=== PATIENT | female | born 1960 | race Caucasian/White ===

== ENCOUNTER 2020-02-09 20:56 | Emergency (ER) | payer OTHER ==
[~2020-02-09] VITALS: Ht 177.8 cm; Wt 83.9 kg
[2020-02-09] MEDS ORDERED: IPRATROPIUM BROM 0.5 MG/2.5ML INH SOL NEB ONE (21:45)
[2020-02-09] MEDS ORDERED: ALBUTEROL SULF HFA 90MCG INH 200DOSE IN SCH (22:00)
[2020-02-09] MEDS ORDERED: IOHEXOL 350 MG/ML 100ML IJ ONE (22:14)
[2020-02-09] MEDS ORDERED: AZITHROMYCIN 500MG/ 250ML 250 ML IV ONE (22:15)
[2020-02-09 23:08] LABS: Basophils # (auto) 0 10 ^3/uL (0-0.2); Basophils % (auto) 0.4 % (0.0-2.0); Eosinophils # (auto) 0 10 ^3/uL (0-0.8); Hematocrit 32.7 % (36.0-46.0); Hemoglobin 11.1 g/dL (12.2-16.2); Lymphocytes # (auto) 0.4 10 ^3/uL (0.4-5.4); Lymphocytes % (auto) 20.3 % (10.0-50.0); Mean Corpuscular Hemoglobin 31.8 pg (28.0-32.0); Mean Corpuscular Hgb Conc. 33.9 g/dL (32.0-36.0); Mean Corpuscular Volume 93.9 fL (80.0-100.0); Monocytes # (auto) 0.1 10 ^3/uL (0-1.3); Neutrophils # (auto) 1.4 10 ^3/uL (1.6-8.6); Neutrophils % (auto) 72.3 % (37.0-80.0); Nucleated Red Blood Cells % 0.3 %; Platelet Count (auto) 282 10^3/uL (140-450); Red Blood Cells 3.48 10^6/uL (4.0-5.20)
[2020-02-09 23:26] LABS: INR 1.09 (0.9-1.15); Partial Thromboplastin Time 41.5 sec (23.0-31.2)
[2020-02-09 23:31] LABS: Alanine Aminotransferase 17 U/L (13-56); Albumin 2.7 g/dL (3.4-5.0); Anion Gap 8 (5-15); Aspartate Aminotransferase 40 U/L (15-37); BUN/Creatinine Ratio 16.7; Blood Urea Nitrogen 7 mg/dL (7-18); Calcium 8.1 mg/dL (8.5-10.1); Carbon Dioxide 28 mmol/L (21-32); Chloride 97 mmol/L (98-107); GFR African American 197 mL/min; GFR Non-African American 163 mL/min; Glucose 102 mg/dL (74-106); Potassium 3.6 mmol/L (3.5-5.1); Sodium 133 mmol/L (136-145)
[2020-02-09 23:36] LABS: Alkaline Phosphatase 98 U/L (45-117); Bilirubin, Total 0.3 mg/dL (0.2-1.0); Total Protein 6.7 g/dL (6.4-8.2)
[2020-02-09 23:59] LABS: Urine Bacteria NONE SEEN /hpf (None Seen); Urine Blood Negative /uL (Negative); Urine Mucus FEW (None Seen); Urine Specific Gravity 1.011 (1.001-1.035); Urine WBC 3 /hpf (0 - 5)
[2020-02-10 00:14] VITALS: BP 122/42
[2020-02-10 03:20] VITALS: BP 142/53
[2020-02-10] MEDS ORDERED: LORazepam 2MG/ML-1ML VIAL ONE ×2 (08:05→09:37)
[2020-02-10 09:31] VITALS: BP 136/64
== END 2020-02-10 09:55 | disposition short-term general hospital (02) ==
LOC: ER 20:56 → EDBD 20:56 → ER 02-10 09:55
DX: S22.5XXA Flail chest, initial encounter for closed fracture (principal); S42.001G Fracture of unspecified part of right clavicle, subsequent encounter for fracture with delayed healing; S42.002G Fracture of unspecified part of left clavicle, subsequent encounter for fracture with delayed healing; S22.49XA Multiple fractures of ribs, unspecified side, initial encounter for closed fracture; S27.322A Contusion of lung, bilateral, initial encounter; J18.9 Pneumonia, unspecified organism; U07.1 COVID-19; R55 Syncope and collapse; X58.XXXA Exposure to other specified factors, initial encounter; Y93.89 Activity, other specified; Y92.89 Other specified places as the place of occurrence of the external cause; Y99.8 Other external cause status
CPT/HCPCS: 36415; 36600; 70450; 71045; 71275; 80053; 81001; 82805; 83605; 83735; 83880; 84484; 85025; 85379; 85610; 85730; 87040; 87426; 94660; 96365; 99291; J0456; J2060; Q9967